=== PATIENT | female | born 1990 | race American Indian/Alaskan Native ===

== ENCOUNTER 2017-02-26 17:24 | Emergency (ER) | payer MEDICAID, OTHER ==
[2017-02-26 17:25] VITALS: BMI 23.0
--- NOTE | 2017-02-26 18:38 | ED PDOC ---
HPI: General Adult Time Seen by Provider: 02/26/17 18:37 Chief Complaint (Nursing): Female Genitourinary Chief Complaint (Provider): fever History Per: Patient Additional Complaint(s): 27-year-old female presents to emergency department with fever, body aches, lower abdominal pain and dysuria that started 2 days ago. Patient also has sore throat. She denies any vomiting, diarrhea or constipation. Patient has history of frequent urinary tract infections. Patient also has had vaginal discharge for a few days and has had recent unprotected intercourse. She also has history of PID. Past Medical History Reviewed: Historical Data, Nursing Documentation, Vital Signs Vital Signs: Last Vital Signs Temp 101.9 F H 02/26/17 19:00 Pulse 121 H 02/26/17 18:13 Resp 16 02/26/17 18:13 BP 119/75 02/26/17 18:13 Pulse Ox 99 02/26/17 19:23 - Medical History PMH: Anemia - Surgical History Surgical History: No Surg Hx - Family History Family History: States: No Known Family Hx - Living Arrangements Living Arrangements: With Family - Social History Current smoker - smoking cessation education provided: No Alcohol: Social Drugs: Denies - Home Medications Home Medications: Ambulatory Orders Medication Instructions Recorded Diphenhydramine Hydrochlorid 25 mg PO DAILY 04/13/15 [Benadryl] Vit #60/Iron Fum/FA [Pnv 1 tab PO DAILY 04/13/15 Health] Clindamycin [Cleocin] 300 mg PO Q6 #28 cap 01/19/16 oxyCODONE/Acetaminophen [Percocet 1 ea PO Q6 PRN #15 tab 01/19/16 5/325 mg Tab] Oseltamivir Phosphate [Tamiflu] 75 mg PO BID #10 capsule 11/21/16 - Allergies Allergies/Adverse Reactions: Allergies Allergy/AdvReac Type Severity Reaction Status Date / Time No Known Allergies Allergy Verified 02/26/17 18:13 Review of Systems ROS Statement: Except As Marked, All Systems Reviewed And Found Negative Constitutional: Positive for: Fever, Other (body aches) ENT: Positive for: Throat Pain Respiratory: Negative for: Cough Gastrointestinal: Positive for: Abdominal Pain. Negative for: Nausea, Vomiting Genitourinary Female: Positive for: Dysuria, Vaginal Discharge. Negative for: Vaginal Bleeding Neurological: Negative for: Headache, Dizziness Physical Exam - Reviewed Nursing Documentation Reviewed: Yes Vital Signs Reviewed: Yes - Physical Exam Appears: Positive for: Well, Non-toxic, No Acute Distress Head Exam: Positive for: ATRAUMATIC, NORMAL INSPECTION Skin: Positive for: Normal Color. Negative for: Rash Eye Exam: Positive for: Normal appearance, EOMI, PERRL ENT: Positive for: Pharyngeal Erythema Cardiovascular/Chest: Positive for: Regular Rate, Rhythm Respiratory: Positive for: Normal Breath Sounds Gastrointestinal/Abdominal: Positive for: Tenderness (tenderness across lower abdomen with no rebound or guarding) Pelvic Exam: Positive for: External Exam Normal, Speculum Exam Normal, Bimanual Exam Normal, No Cerv. Motion Tender, Discharge (copious white discharge noted from closed cervical os) Back: Positive for: Vertebral Tenderness (lower lumbar region). Negative for: L CVA Tenderness, R CVA Tenderness Extremity: Negative for: Pedal Edema Neurologic/Psych: Positive for: Alert, Oriented - Laboratory Results Urine POC: Negative - ECG O2 Sat by Pulse Oximetry: 99 Pulse Ox Interpretation: Normal Medical Decision Making Medical Decision Makin27 year old with fever and abdominal pain Plan: Blood cultures Rapid strep and throat culture CBC CMP Flu swab IVF CXR CHL/GC cultures Genital culture Patient has history of recent unprotected intercourse and vaginal discharge on exam, she was treated empirically with 250 mg IM Rocephin and 1 g of Zithromax oral dose. Disposition - Clinical Impression Clinical Impression: Fever, Abdominal pain - Patient ED Disposition Is Patient to be Admitted: Transfer of Care - Disposition Disposition: Transfer of Care Disposition Time: 20:00 Condition: FAIR Patient Signed Over To: Tae Meneses Handoff Comments: Signed out pending diagnostic testing results and final disposition
[2017-02-26] MEDS ORDERED: Sodium Chloride 0.9% 1,000 ML IV STA (18:46)
[2017-02-26] MEDS ORDERED: cefTRIAXone (Rocephin) 250 mg Inj IM STA (19:20)
[2017-02-26 19:22] LABS: RBC URINE 3 /hpf (0-3); URINE BILIRUBIN NEGATIVE (NEGATIVE); URINE BLOOD NEGATIVE (NEGATIVE); URINE COLOR YELLOW (YELLOW); URINE GLUCOSE (UA) NEG (Normal); URINE KETONE 20 mg/dL (NEGATIVE); URINE LEUKOCYTE ESTERASE MOD Leu/uL (Negative); URINE PROTEIN NEGATIVE (NEGATIVE); WBC URINE 10 /hpf (0-5)
[2017-02-26] MEDS ORDERED: Sterile Water 10 ML IV ONE (19:33)
[2017-02-26] MEDS ORDERED: cefTRIAXone (Rocephin) 250 mg Inj ONE (19:33)
[2017-02-26 21:09] LABS: BASO % 0.5 % (0.0-2.0); EOS % 0.1 % (0.0-4.0); HEMATOCRIT 38.4 % (34.0-47.0); LYMPH % 10.1 % (20.0-40.0); MEAN CELL VOLUME 73.8 fl (81.0-99.0); MEAN CORPUSCULAR HEMOGLOBIN 24.1 pg (27.0-31.0); MEAN CORPUSCULAR HGB CONC 32.6 g/dL (33.0-37.0); MONO # 0.8 K/uL (0.0-0.8); MONO % 7.8 % (0.0-10.0); NEUT # 8.4 K/uL (1.8-7.0); NEUT % 81.5 % (50.0-75.0); RED CELL DISTRIBUTION WIDTH 18.9 % (11.5-14.5); WHITE BLOOD COUNT 10.3 K/uL (4.8-10.8)
--- NOTE | 2017-02-26 21:17 | ED PDOC ---
- Laboratory Results Result Diagrams: 02/26/17 19:10 02/26/17 19:10 Urine POC: Negative - ECG O2 Sat by Pulse Oximetry: 99 - Progress ED Course And Treament: case transferred to card writer hand-pending labs. pt treated for STI-ceftriaxone/ azithromycin. Pt with UTI on UA. Medical Decision Making Medical Decision Making: Pt VS improved in ED, labs-cbc/cmp unremarkable- UA shows UTI pt STI will be sent and resulted in 5days. Pt will be d/c on doxycycline for possible PID. Disposition - Clinical Impression Clinical Impression: Fever, Abdominal pain, UTI (urinary tract infection) - POA Present On Arrival: None - Disposition Disposition: Routine/Home Disposition Time: 21:48 Condition: FAIR Prescriptions: Doxycycline Monohydrate 100 mg PO BID #14 capsule Instructions: Urinary Tract Infection in Women (ED) Progress Note - Review of Symptoms General: No: Chills, Night Sweats, Fatigue, Malaise, Appetite, Other HEENT: No: Head Aches, Visual Changes, Eye Pain, Ear Pain, Dysphasia, Sinus Congestion, Post Nasal Drip, Sore Throat, Other Pulmonary: No: Dyspnea, Cough, Pleuritic Chest Pain, Other Cardiovascular: No: Chest Pain, Palpitations, Orthopnea, Paroxysmal Noc. Dyspnea , Edema, Light Headedness, Other Gastrointestinal: No: Nausea, Vomiting, Abdominal Pain, Diarrhea, Constipation, Melena, Hematochezia, Other Genitourinary: No: Dysuria, Frequency, Incontinence, Hematuria, Retention, Other Neurological: No: Weakness, Numbness, Incoordination, Change in speech, Confusion, Seizures, Other
[2017-02-26 21:32] LABS: ALB/GLOB RATIO 1.2 (1.0-2.1); ALKALINE PHOSPHATASE 67 U/L (38-126); ALT/SGPT 27 U/L (9-52); AST/SGOT 37 U/L (14-36); BILIRUBIN,TOTAL 1.1 mg/dl (0.2-1.3); BLOOD UREA NITROGEN 12 mg/dl (7-17); CALCIUM 9.6 mg/dL (8.4-10.2); CARBON DIOXIDE 24 mmol/L (22-30); CHLORIDE 102 mmol/L (98-107); GFR AFRICAN-AMERICAN > 60; GLUCOSE,RANDOM 145 mg/dL (65-105); POTASSIUM 3.9 MMOL/L (3.6-5.0); SODIUM 141 mmol/l (132-148); TOTAL PROTEIN 8.3 G/DL (6.3-8.2)
[2017-02-26 21:43] VITALS: BP 101/71; PULSE 106; RESP 18; TEMP 99.6
[2017-02-26 21:47] VITALS: O2SAT 99
--- NOTE | 2017-02-27 08:42 | RAD ---
HISTORY: fever COMPARISON: No prior. FINDINGS: LUNGS: No focal infiltrate is seen. Trachea is midline. No significant interstitial changes are noted. Left and right hilar regions are normal in outline. PLEURA: No significant pleural effusion identified, no pneumothorax apparent. CARDIOVASCULAR: Normal. OSSEOUS STRUCTURES: No significant abnormalities. VISUALIZED UPPER ABDOMEN: Normal. OTHER FINDINGS: None. IMPRESSION: No focal infiltrate or CHF. No pneumothorax.
== END 2017-02-26 22:29 | disposition home or self-care (01) ==
LOC: H.ER 17:24
DX: R10.9 Unspecified abdominal pain (principal); N39.0 Urinary tract infection, site not specified; R50.9 Fever, unspecified; R30.0 Dysuria; J02.9 Acute pharyngitis, unspecified

== ENCOUNTER 2018-03-01 22:21 | Emergency (ER) | payer OTHER ==
[2018-03-01 22:21] VITALS: BMI 22.0
--- NOTE | 2018-03-01 23:04 | ED PDOC ---
HPI: CCC, URI, Sore Throat Time Seen by Provider: 03/01/18 22:34 Chief Complaint (Nursing): ENT Problem Chief Complaint (Provider): cold symptoms History Per: Patient History/Exam Limitations: no limitations Onset/Duration Of Symptoms: Days (1 week) Current Symptoms Are (Timing): Still Present Associated Symptoms: Sore Throat, Cough, Nasal Congestion. denies: Sputum Additional Complaint(s): 28 y/o female presents with cold-symptoms x 1 week. Patient reports nasal congestion, sore throat, nonproductive cough. Patient reports little relief with robitussin and nyquil. Denies fever, headache, dizziness, chest pain, shortness of breath, palpitations, abdominal pain, recent travel, known sick contacts. Past Medical History Reviewed: Historical Data, Nursing Documentation, Vital Signs Vital Signs: Last Vital Signs Temp 98.0 F 03/01/18 22:30 Pulse 86 03/01/18 22:30 Resp 17 03/01/18 22:30 BP 107/68 03/01/18 22:30 Pulse Ox 97 03/01/18 23:04 - Medical History PMH: Anemia Denies: Chronic Kidney Disease - Surgical History Surgical History: No Surg Hx - Family History Family History: States: Unknown Family Hx - Immunization History Hx Tetanus Toxoid Vaccination: No Hx Influenza Vaccination: No Hx Pneumococcal Vaccination: No - Home Medications Home Medications: Ambulatory Orders Medication Instructions Recorded Fluticasone Nasal [Flonase] 1 actuation NS BID #1 bottle 03/01/18 Ibuprofen [Motrin Tab] 1 tab PO Q6 PRN #20 tab 03/01/18 Promethazine DM [Phenergan DM 5 ml PO Q6 PRN #1 bottle 03/01/18 Syrup] - Allergies Allergies/Adverse Reactions: Allergies Allergy/AdvReac Type Severity Reaction Status Date / Time No Known Allergies Allergy Verified 02/26/17 18:13 Review of Systems ROS Statement: Except As Marked, All Systems Reviewed And Found Negative ENT: Positive for: Nose Congestion, Throat Pain Respiratory: Positive for: Cough Physical Exam - Reviewed Nursing Documentation Reviewed: Yes Vital Signs Reviewed: Yes - Physical Exam Appears: Positive for: Well, Non-toxic, No Acute Distress Head Exam: Positive for: ATRAUMATIC, NORMAL INSPECTION, NORMOCEPHALIC Skin: Positive for: Normal Color Eye Exam: Positive for: Normal appearance ENT: Positive for: Normal ENT Inspection Cardiovascular/Chest: Positive for: Regular Rate, Rhythm Respiratory: Positive for: Normal Breath Sounds Gastrointestinal/Abdominal: Positive for: Normal Exam Back: Positive for: Normal Inspection Extremity: Positive for: Normal ROM Neurologic/Psych: Positive for: Alert (age appropriate) - ECG O2 Sat by Pulse Oximetry: 97 - Progress ED Course And Treament: ibuprofen, rapid strep Patient educated on findings, discharged with rx ibuprofen, flonase, promethazine DM Advised fluids, rest. Follow up PMD 2-3 days. Return precautions given. Disposition - Clinical Impression Clinical Impression: Upper respiratory infection - Patient ED Disposition Is Patient to be Admitted: No Counseled Patient/Family Regarding: Studies Performed, Diagnosis, Need For Followup, Rx Given - Disposition Disposition: Routine/Home Disposition Time: 00:03 Condition: IMPROVED Prescriptions: Fluticasone Nasal [Flonase] 1 actuation NS BID #1 bottle Ibuprofen [Motrin Tab] 1 tab PO Q6 PRN #20 tab PRN Reason: Pain, Moderate (4-7) Promethazine DM [Phenergan DM Syrup] 5 ml PO Q6 PRN #1 bottle PRN Reason: Cough Instructions: Viral Upper Respiratory Infection, Adult (DC) Forms: [employer] ([place])
[2018-03-02 00:09] VITALS: BP 110/64; PULSE 72; RESP 16; TEMP 98.2; O2SAT 98
== END 2018-03-02 00:08 | disposition home or self-care (01) ==
LOC: H.ER 22:21
DX: J06.9 Acute upper respiratory infection, unspecified (principal)